=== PATIENT | female | born 1945 | race Caucasian/White ===

== ENCOUNTER 2022-06-08 20:24 | Inpatient (IN) | payer MEDICARE ==
[~2022-06-08] VITALS: Ht 160 cm; Wt 38.6 kg
[2022-06-08 21:16] LABS: HEMOGLOBIN 11.8 gm/dl (12.3-15.3); RED BLOOD COUNT 4.1 M/UL (4.00-5.10); WHITE BLOOD COUNT 17.6 K/UL (4.5-11.0)
[2022-06-09 02:45] LABS: HEMOGLOBIN 10.4 gm/dl (12.3-15.3); RED BLOOD COUNT 3.65 M/UL (4.00-5.10); WHITE BLOOD COUNT 15.8 K/UL (4.5-11.0)
[2022-06-09 03:05] LABS: BUN/CREATININE RATIO 23 (0-10)
[2022-06-09 06:08] LABS: ADENOVIRUS F 40/41 Not Detected (Negative); ASTROVIRUS Not Detected (Negative); CAMPYLOBACTER Not Detected (Negative); CRYPTOSPORIDIUM Not Detected (Negative); E.COLI 0157 Not Detected (Negative); ENTAMOEBA HISTOLYTICA Not Detected (Negative); ENTEROAGGREGATIVE E.COLI (EAEC Not Detected (Negative); ENTEROPATHOGENIC E.COLI (EPEC) Not Detected (Negative); ENTEROTOXIGENIC E.COLI (ETEC) Not Detected (Negative); GIARDIA LAMBLIA Not Detected (Negative); NOROVIRUS GI/GII Not Detected (Negative); PLESIOMONAS SHIGELLOIDES Not Detected (Negative); ROTOVIRUS A Not Detected (Negative); SALMONELLA Not Detected (Negative); SAPOVIRUS Not Detected (Negative); SHIG/ENTEROINVAS.ECOLI (EIEC) Not Detected (Negative); SHIGA-LIK TOX.PRO.E.COLI (STEC Not Detected (Negative); VIBRIO Not Detected (Negative); VIBRIO CHOLERAE Not Detected (Negative); YERSINIA ENTEROCOLITICA Not Detected (Negative)
[2022-06-10 02:28] LABS: HEMOGLOBIN 10.9 gm/dl (12.3-15.3); RED BLOOD COUNT 3.79 M/UL (4.00-5.10); WHITE BLOOD COUNT 15.8 K/UL (4.5-11.0)
[2022-06-10 02:55] LABS: BUN/CREATININE RATIO 18 (0-10)
[2022-06-11 06:19] LABS: HEMOGLOBIN 10.8 gm/dl (12.3-15.3); RED BLOOD COUNT 3.78 M/UL (4.00-5.10); WHITE BLOOD COUNT 15.3 K/UL (4.5-11.0)
[2022-06-11 06:50] LABS: BUN/CREATININE RATIO 14 (0-10)
[2022-06-11] MEDS ORDERED: AMLODIPINE BESYL5 MG PO (11:22)
[2022-06-11] MEDS ORDERED: MIRALAX 119 GR119 GM PO (11:26)
[2022-06-11] MEDS ORDERED: SERTRALINE HCL25 MG PO (11:26)
[2022-06-11] MEDS ORDERED: AMITRIPTYLINE100 MG PO (11:27)
[2022-06-11] MEDS ORDERED: DIAZEPAM5 MG PO (11:27)
[2022-06-12 06:03] LABS: HEMOGLOBIN 9.9 gm/dl (12.3-15.3); RED BLOOD COUNT 3.56 M/UL (4.00-5.10); WHITE BLOOD COUNT 15.5 K/UL (4.5-11.0)
[2022-06-12 06:51] LABS: BUN/CREATININE RATIO 16 (0-10)
[2022-06-13 02:56] LABS: HEMOGLOBIN 10.4 gm/dl (12.3-15.3); RED BLOOD COUNT 3.72 M/UL (4.00-5.10); WHITE BLOOD COUNT 12.1 K/UL (4.5-11.0)
[2022-06-13 03:23] LABS: BUN/CREATININE RATIO 10 (0-10)
[2022-06-14 02:42] LABS: HEMOGLOBIN 10.5 gm/dl (12.3-15.3); RED BLOOD COUNT 3.66 M/UL (4.00-5.10); WHITE BLOOD COUNT 10.2 K/UL (4.5-11.0)
[2022-06-14 03:12] LABS: BUN/CREATININE RATIO 12 (0-10)
[2022-06-15 03:12] LABS: HEMOGLOBIN 10.8 gm/dl (12.3-15.3); RED BLOOD COUNT 3.68 M/UL (4.00-5.10)
[2022-06-15 03:40] LABS: BUN/CREATININE RATIO 15 (0-10)
[2022-06-15] MEDS ORDERED: VANCOMYCIN HCL125 MG PO (18:35)
[2022-06-16 02:53] LABS: HEMOGLOBIN 10.5 gm/dl (12.3-15.3); RED BLOOD COUNT 3.67 M/UL (4.00-5.10)
[2022-06-16 03:07] LABS: BUN/CREATININE RATIO 28 (0-10)
[2022-06-16 03:18] LABS: WHITE BLOOD COUNT 7.7 K/UL (4.5-11.0)
== END 2022-06-16 13:10 | DRG 872 ==
LOC: ER1 20:24 → EDBD 20:24 → M/S 06-09 04:33 → CDU 06-09 04:33 → M/S 06-09 04:33
PROVIDERS: Internal Medicine; Physician Assistant; ADMIT Internal Medicine
DX: A41.9 Sepsis, unspecified organism (principal); E87.1 Hypo-osmolality and hyponatremia; N17.9 Acute kidney failure, unspecified; R64 Cachexia; Z68.1 Body mass index [BMI] 19.9 or less, adult; A04.72 Enterocolitis due to Clostridium difficile, not specified as recurrent; R65.20 Severe sepsis without septic shock; R53.81 Other malaise; E86.0 Dehydration; E87.6 Hypokalemia; R73.9 Hyperglycemia, unspecified; E83.42 Hypomagnesemia; R62.7 Adult failure to thrive; I10 Essential (primary) hypertension; F03.90 Unspecified dementia, unspecified severity, without behavioral disturbance, psychotic disturbance, mood disturbance, and anxiety; Z98.890 Other specified postprocedural states; Z79.899 Other long term (current) drug therapy
CPT/HCPCS: 0240U; 36415; 36600; 51701; 70450; 71045; 80048; 80053; 81001; 82272; 82803; 82962; 83036; 83690; 83735; 84132; 85025; 85027; 87040; 87086; 87324; 87449; 87507; 93005; 94760; 96365; 96375; 97110-GP-CQ; 97116; 97116-GP-CQ; 97161; 97166; 99285; J0696; J1650; J2405; J3475; J3480; Q9967